=== PATIENT | female | born 1975 | race Two or more races ===

== ENCOUNTER 2017-01-27 21:45 | Inpatient (IN) | payer SELFPAY ==
--- NOTE | 2017-01-27 22:18 | ER Document Report ---
ED General - General Chief Complaint: Breathing Difficulty Stated Complaint: DIFFICULTY BREATHING Mode of Arrival: Medic Information source: Patient Notes: Patient presents to the emergency department via EMS for complaints of difficulty breathing wheezing. Patient reports she is visiting the area from [place]. She reports they drove here one week ago. Patient reports that she had a cough before leaving [place]. She reports cough continued usually in the morning and afternoons without problem. She denies fever vomiting diarrhea. She denies past medical history of asthma or COPD. Patient reports she does smoke occasionally. She reports she went to the urgent care and received a steroid injection and to neb treatments. Then she was prescribed an inhaler and some cough medicine with codeine. While she was standing in line at [facility] to obtain medications she became short of breath and lightheaded and they called EMS. EMS has given her to do her labs. Patient is SOB with exertion and with normal conversation. - HPI Onset: Last week Onset/Duration: Persistent Quality of pain: Achy Associated symptoms: Nonproductive cough Exacerbated by: Denies Relieved by: Denies Similar symptoms previously: Yes Recently seen / treated by doctor: Yes - Related Data Allergies/Adverse Reactions: No Known Allergies Allergy (Unverified 01/27/17 22:11) Home Medications: Current Home Medications No Home Medications 01/28/17 [History] Past Medical History - General Information source: Patient - Social History Smoking Status: Current Some Day Smoker Frequency of alcohol use: None Drug Abuse: None Lives with: Family Family History: Reviewed & Not Pertinent Patient has suicidal ideation: No Patient has homicidal ideation: No - Medical History Medical History: Negative Surgical Hx: Negative Physical Exam - Vital signs Vitals: Temp Pulse Resp BP Pulse Ox 97.5 F 101 H 20 117/65 95 01/27/17 21:56 01/27/17 21:56 01/27/17 21:56 01/27/17 21:56 01/27/17 21:56 - Notes Notes: PHYSICAL EXAMINATION: GENERAL: Nontoxic looking HEAD: Atraumatic, normocephalic. EYES: Pupils equal round and reactive to light, extraocular movements intact, sclera anicteric, conjunctiva are normal. ENT: nares patent, oropharynx clear without exudates. Moist mucous membranes. NECK: Normal range of motion, supple without lymphadenopathy LUNGS: bilateral wheeze a & p tachypneic HEART: Regular rate and rhythm without murmurs ABDOMEN: Soft, no tenderness. No guarding, no rebound BACK: No pain with palpation EXTREMITIES: Normal range of motion, no pitting edema. No cyanosis. NEUROLOGICAL: Cranial nerves grossly intact. Normal sensory/motor exams. PSYCH: Normal mood, normal affect. SKIN: Warm, Dry, normal turgor, no rashes or lesions noted Course - Re-evaluation Re-evalutation: 01/27/17 23:19 Patient has received 3 DuoNeb's to albuterol nebs in a steroid injection. Patient is still wheezing bilaterally A&P. Patient is on 2 L oxygen when removed her o2sats drop to 88-89%. Have considered PE but patient does not meet Wells criteria based on VS, hx. I have consulted the attending provider dr castellano per APC guidelines, magnesium 2 gms ordered IV. 01/28/17 01:18 Pt up to the BR, audible wheezing, Dr Castellano in to evaluate patient agrees with admission. Pt updated on plan. Pt is supposed to drive back to [place] tomorrow. Dr Castellano discussed at length the importance of staying. She verbalized understanding. 01/28/17 01:28 Dr Hilliard contacted, agrees to admission, IMCU. - Vital Signs Vital signs: Temp Pulse Resp BP Pulse Ox 98.3 F 101 H 26 H 122/65 93 01/28/17 04:25 01/27/17 21:56 01/28/17 02:01 01/28/17 03:03 01/28/17 04:00 - Laboratory Result Diagrams: 01/27/17 22:23 01/27/17 22:23 Laboratory results interpreted by me: 01/27/17 01/27/17 22:23 22:23 WBC 16.8 H Seg Neutrophils % 87.1 H Lymphocytes % 8.5 L Monocytes % 2.9 L Absolute Neutrophils 14.6 H Glucose 155 H - Diagnostic Test Radiology reviewed: Image reviewed, Reports reviewed - RAD/ CHEST PA/LAT IMPRESSION: NO SIGNIFICANT RADIOGRAPHIC FINDING IN THE CHEST Discharge - Discharge Clinical Impression: Difficulty breathing, Wheeze Condition: Stable Disposition: ADMITTED INPATIENT Admitting Provider: Barbie hilliard Unit Admitted: CU
[2017-01-27 22:38] LABS: ABSOLUTE EOSINOPHILS # (AUTO) 0.2 10^3/uL (0.0-0.6); ABSOLUTE LYMPHOCYTES (AUTO) 1.4 10^3/uL (0.5-4.7); ABSOLUTE MONOCYTES (AUTO) 0.5 10^3/uL (0.1-1.4); ABSOLUTE NEUT (AUTO) 14.6 10^3/uL (1.7-8.2); BASOPHILS % (AUTO) 0.1 % (0-2); EOSINOPHILS % (AUTO) 1.4 % (0-6); HEMATOCRIT 41.3 % (36.0-47.0); HEMOGLOBIN 13.7 g/dL (12.0-15.5); HGB HCT DIFFERENCE -0.2; LYMPHOCYTES % (AUTO) 8.5 % (13-45); MEAN CORPUSCULAR HEMOGLOBIN 30.4 pg (27.0-33.4); MEAN CORPUSCULAR HGB CONC 33.2 g/dL (32.0-36.0); MEAN CORPUSCULAR VOLUME 92 fl (80-97); MONOCYTES % (AUTO) 2.9 % (3-13); RED BLOOD COUNT 4.52 10^6/uL (3.72-5.28); RED CELL DISTRIBUTION WIDTH 13.1 % (11.5-14.0); SEGMENTED NEUTROPHILS % (AUTO) 87.1 % (42-78); WHITE BLOOD COUNT 16.8 10^3/uL (4.0-10.5)
[2017-01-27 23:03] LABS: ALANINE AMINOTRANSFERASE 25 U/L (9-52); ALBUMIN 4.3 g/dL (3.5-5.0); ALKALINE PHOSPHATASE 89 U/L (38-126); ANION GAP 12 (5-19); ASPARTATE AMINO TRANSFERASE 21 U/L (14-36); BILIRUBIN,DIRECT 0.1 mg/dL (0.0-0.4); BILIRUBIN,TOTAL 0.8 mg/dL (0.2-1.3); BLOOD UREA NITROGEN 14 mg/dL (7-20); CALCIUM 9.5 mg/dL (8.4-10.2); CARBON DIOXIDE 25 mmol/L (22-30); CHLORIDE 104 mmol/L (98-107); CREATININE RESULT 0.63 mg/dL (0.52-1.25); GLUCOSE 155 mg/dL (75-110); POTASSIUM 3.8 mmol/L (3.6-5.0); SODIUM 140.9 mmol/L (137-145); TOTAL PROTEIN 7.3 g/dL (6.3-8.2)
[2017-01-27] MEDS ORDERED: IPRATROPIUM/ALBUTEROL 0.5-2.5 MG/3 ML AMPUL NEB ONE (23:04)
[2017-01-27] MEDS: MAGNESIUM SULFATE/D5W 100 ML IV SCH ×2 (23:33→23:57)
[2017-01-28] MEDS ORDERED: ALBUTEROL SULFATE 0.083% NEB 2.5 MG/3 ML AMPUL NEB ONE (00:41)
[2017-01-28] MEDS ORDERED: METHYLPREDNISOLONE INJ 125 MG/2 ML SDV IV ONE ×2 (01:11→10:00)
[2017-01-28] MEDS ORDERED: NORMAL SALINE 1000 ML 1,000 ML IV ONE (01:12)
[2017-01-28] MEDS ORDERED: ALBUTEROL SULFATE 0.083% NEB 2.5 MG/3 ML AMPUL NEB SCH (01:15)
[2017-01-28 02:09] LABS: TROPONIN I < 0.012 ng/mL
[2017-01-28] MEDS ORDERED: GUAIFENESIN SYRP 200 MG/10 ML UDC PO PRN (03:49)
[2017-01-28] MEDS ORDERED: ACETAMINOPHEN 325 MG TABLET PO PRN (03:49)
[2017-01-28] MEDS ORDERED: ALBUTEROL SULFATE 0.083% NEB 2.5 MG/3 ML AMPUL NEB PRN (03:49)
[2017-01-28] MEDS ORDERED: NORMAL SALINE 1000 ML 1,000 ML IV PRN (03:51)
[2017-01-28 03:56] LABS: ADD ON TESTING BLD IN LAB ACKNOWLEDGE
[2017-01-28] MEDS ORDERED: NICOTINE 7 MG/24 HR PATCH.TD24 TD PRN ×2 (03:59→04:51)
--- NOTE | 2017-01-28 04:07 | PDOC H&P ---
History of Present Illness Admission Date/PCP: 01/28/17 01:39 PCP [facility]. Patient complains of: Cough History of Present Illness: RUBIO NUNEZ is a 41 year old female, originally from [facility], with no known underlying pulmonary disease, who presents to the emergency room for evaluation of a one-week history of above complaint. Patient has been discussed with emergency room nurse practitioner who evaluated the patient. She and family drove down from [place] approximately a week ago. Just prior to leaving, she developed a cough. This has persisted and slightly worsened. Is typically at its worst at night. Over the last day or so, she's been coughing so much that she actually has had to go outside to get fresh air. She's had associated wheezing and some shortness of breath. No prior such episodes. Denies fever or chills. No unusual exposure to chemicals or fumes or other substances. No sick contacts. She's had mild sharp right-sided chest pain, primarily with coughing. Cough is primarily a dry cough. Went to the local urgent care center today and received an intramuscular steroid injection along with DuoNeb treatments. Was given prescription for inhaler and cough medicine with codeine. While standing in line at the local [facility] to obtain her medications, she became short of breath and lightheaded. EMS was called. She continues to wheeze here in the emergency room, although coughing has improved somewhat. Has received further multiple bronchodilator treatments, along with Solu-Medrol.. [facility] and are reviewed. X-ray summary results are listed below, with full report(s) reviewed. . EKG reviewed. No old EKG available for comparison. Social history/personal habits: . Has one daughter. Recently unemployed. 2 or 3 cigarettes a day. No alcohol or illicit drug use. Allergies/adverse reactions NKDA. Home medications none REVIEW OF SYSTEMS: Constitutional: No fever or chills. Eyes: No current vision complaints. ENT: Occasional mild dysphagia, without aspiration. Reportedly has had a negative workup of same back home in [place]. No hearing problems or complaints. Pulmonary: See history and present illness. Cardiovascular: See history and present illness. Gastrointestinal: No current complaints, including nausea or vomiting. Skin: No current complaints, including rashes. Hematologic: Easy bruising. Neurologic: No current complaints, including numbness or tingling. Musculoskeletal: No current complaints, including painful joints. Psychiatric: No current complaints, including anxiety or depression. Endocrine: No current complaints, including polyuria. Genitourinary: No current complaints, including dysuria. PHYSICAL EXAMINATION: Neither Heitner weight are recorded on the chart. In future 97.9. Blood pressure 122/65. Pulse 119 and regular. 96% saturation on 2 L oxygen per nasal cannula. Respirations are 23 and unlabored. Slightly overweight otherwise well-nourished well-developed female appearing approximately her stated age. Pleasant awake alert and cooperative. Appears slightly fatigued, and to feel a bit under the weather, so to speak. Mildly anxious, without agitation. Her daughter and daughter's female newspaper inserter are present at her side; patient approves. Female emergency room nurse [place] is present. Skin is warm and dry. No grossly obvious evidence of rash in areas of skin examined. No subcutaneous nodules palpated. ENT: Hearing grossly normal Mildly hard of hearing to normal conversation. Tongue midline on protrusion pink and slightly tacky. Eyes: No scleral icterus. Pupils equal and reactive to light at 4 mm. [place] conjunctivae. Neck is supple and nontender to gentle active range of motion and palpation. Midline trachea. No palpable thyroid nodule mass enlargement or tenderness. Lymphatic: No palpable cervical or clavicular nodes. Neck and lymphatic exams limited by patient body habitus. Psychiatric: Reasonable insight into acute and chronic medical issues. Oriented to time location and why here. Lungs: Auscultation reveals equal breath sounds bilaterally. No use of accessory respiratory muscles. Diffuse mild expiratory wheezing bilaterally. Cardiovascular: Heart regular rate and rhythm, without gallop murmur or rub. No carotid or abdominal aortic bruits. No ankle or pedal edema. palpable dorsalis pedis pulses. Abdomen: soft, slightly, distended nontender with positive bowel sounds. Unable to adequately evaluate abdomen for masses or organomegaly due to distention. Extremities: Feet are warm and dry. No calf tenderness to compression. No grossly obvious visual evidence of calf swelling. Gentle manipulation of lower extremities fails to reveal any obvious evidence of injury or instability to knees hips or ankles. Neurologic: Moves upper extremities grossly normally. Patellar reflexes absent. Absent Babinski. Light touch is intact at feet. Dorsiflexion and plantarflexion of feet 5 / 5 and symmetric. 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 Denies: Diabetes Mellitus Type 1, Diabetes Mellitus Type 2 Renal/ Medical History: Reports: None GI Medical History: Denies: Cirrhosis, Gastroesophageal Reflux Disease, Hepatitis, Peptic Ulcer Disease Musculoskeltal Medical History: Reports: None Skin Medical History: Reports: None Psychiatric Medical History: Reports: Tobacco Dependency Denies: Alcohol Dependency, Depression, General Anxiety Disorder, Substance Abuse Hematology: Reports: Other - Easy bruising Infectious Medical History: Denies: Hepatitis B, Hepatitis C Past Surgical History Past Surgical History: Reports: Tonsillectomy Social History Information Source: Patient, Emergency Med Personnel, [facility] Records Lives with: Family Smoking Status: Current Some Day Smoker Frequency of Alcohol Use: None Drugs: None - Advance Directive Resuscitation Status: Full Code Surrogate healthcare decision maker:: Daughter Family History Family History: Reviewed & Not Pertinent Parental Family History Reviewed: Yes Children Family History Reviewed: Yes Sibling(s) Family History Reviewed.: Yes Medication/Allergy Home Medications: No Home Medications 01/28/17 Allergies/Adverse Reactions: No Known Allergies Allergy (Unverified 01/27/17 22:11) Physical Exam Vital Signs: Temp Pulse Resp BP Pulse Ox 97.5 F 101 H 26 H 128/74 H 94 01/27/17 21:56 01/27/17 21:56 01/28/17 02:01 01/28/17 02:01 01/28/17 02:01 Results Impressions: Chest X-Ray 01/27/17 22:17 IMPRESSION: NO SIGNIFICANT RADIOGRAPHIC FINDING IN THE CHEST. Assessment & Plan - Diagnosis (1) Bronchitis Is this a current diagnosis for this admission?: Yes (2) Difficulty breathing Is this a current diagnosis for this admission?: YesPlan: Scheduled DuoNeb's. When necessary albuterol nebs. Solu-Medrol. Prevacid for gastritis prophylaxis. Sputum culture. I have strongly encouraged patient to notify staff should she feel that her breathing is worsening. I have strongly encouraged patient not to get out of bed without notifying staff , to avoid a fall with injury. Knee high SCDs for DVT prophylaxis, [along with subcutaneous Lovenox . Impression and plans were discussed with patient, who concurs. Time spent in evaluation and management of patient: 61 minutes. (3) Wheeze Is this a current diagnosis for this admission?: Yes (4) Tobacco dependency Is this a current diagnosis for this admission?: YesPlan: When necessary nicotine patch. - Inpatient Certification Based on my medical assessment, after consideration of the patient's comorbidities, presenting symptoms, or acuity I expect that the services needed warrant INPATIENT care.: Yes I certify that my determination is in accordance with my understanding of Medicare's requirements for reasonable and necessary INPATIENT services [42 CFR 412.3e].: Yes Medical Necessity: Need Close Monitoring Due to Risk of Patient Decompensation, Need For IV Fluids, Need for Nebulizer Therapy and Monitoring of Response, Risk of Complication if Not Cared For in Hospital Post Hospital Care: D/C or Transfer Summary
[2017-01-28 04:08] LABS: MAGNESIUM 1.7 mg/dL (1.6-2.3)
[2017-01-28] MEDS ORDERED: LANSOPRAZOLE 30 MG TAB.RAP.DR PO SCH (06:00)
--- NOTE | 2017-01-28 06:12 | EKG REPORT ---
SEVERITY:- BORDERLINE ECG - SINUS TACHYCARDIA BORDERLINE T ABNORMALITIES, INFERIOR LEADS : Confirmed by: Linda Ugarte 28-Jan-2017 06:11:48
[2017-01-28 07:12] LABS: HEMATOCRIT 38.4 % (36.0-47.0); HEMOGLOBIN 12.8 g/dL (12.0-15.5); MEAN CORPUSCULAR HEMOGLOBIN 30.5 pg (27.0-33.4); MEAN CORPUSCULAR HGB CONC 33.3 g/dL (32.0-36.0); MEAN CORPUSCULAR VOLUME 92 fl (80-97); RED CELL DISTRIBUTION WIDTH 13.4 % (11.5-14.0); WHITE BLOOD COUNT 16.6 10^3/uL (4.0-10.5)
[2017-01-28 07:19] LABS: ANION GAP 16 (5-19); BLOOD UREA NITROGEN 9 mg/dL (7-20); CALCIUM 9.3 mg/dL (8.4-10.2); CARBON DIOXIDE 16 mmol/L (22-30); CHLORIDE 110 mmol/L (98-107); CREATININE RESULT 0.56 mg/dL (0.52-1.25); POTASSIUM 4.3 mmol/L (3.6-5.0); SODIUM 141.9 mmol/L (137-145)
[2017-01-28 07:22] LABS: GLUCOSE 142 mg/dL (75-110)
[2017-01-28 07:33] LABS: BASOPHILS % (MANUAL) 0 % (0-2); EOSINOPHILS % (MANUAL) 0 % (0-6); LYMPHOCYTES % (MANUAL) 5 % (13-45); RBC MORPHOLOGY COMMENT NORMO-CYTIC/CHROMIC; TOTAL CELLS COUNTED 100
[2017-01-28] MEDS ORDERED: ENOXAPARIN SODIUM INJ 40 MG/0.4 ML DISP.SYRIN SUBCUT SCH (08:00)
[2017-01-28] MEDS ORDERED: IPRATROPIUM/ALBUTEROL 0.5-2.5 MG/3 ML AMPUL NEB SCH (08:00)
[2017-01-28] MEDS ORDERED: BUDESONIDE/FORMOTEROL 160-4.5 MCG 60 PUFF/6 GM MDI IH SCH (10:00)
[2017-01-28] MEDS ORDERED: METHYLPREDNISOLONE INJ 125 MG/2 ML SDV IV SCH ×2 (10:00→15:00)
[2017-01-28] MEDS ORDERED: AZITHROMYCIN 250 MG TABLET PO ONE (10:30)
[2017-01-28 11:39] VITALS: BP 117/65
--- NOTE | 2017-01-28 16:38 | PDOC DISCHARGE SUMMARY ---
General - Admit/Disc Date/PCP Admission Date/Primary Care Provider: 01/28/17 03:49 Discharge Date: 01/28/17 - Discharge Diagnosis (1) Bronchitis Is this a current diagnosis for this admission?: YesSummary: Patient will continue with inhaled steroids,antibiotics,prednisone taper and albuterol (2) Wheeze Is this a current diagnosis for this admission?: YesSummary: Completely resolved (3) Tobacco dependency Is this a current diagnosis for this admission?: YesSummary: Counseled the need to quit smoking - Additional Information Resuscitation Status: Full Code Discharge Diet: Regular Discharge Activity: Activity As Tolerated Home Medications: Acetaminophen [Tylenol 325 mg Tablet] 650 mg PO Q4HP PRN tablet 01/28/17 Azithromycin 250 mg PO DAILY #4 tablet 01/28/17 Budesonide/Formoterol Fumarate [Symbicort HFA 160-4.5 mcg Inhaler 6 gm] 2 puff IH Q12 #1 inhaler 01/28/17 Prednisone [Deltasone 20 mg Tablet] 20 mg PO ASDIR PRN #12 tablet 01/28/17 History of Present Illness Patient complains of: Cough, shortness breath and wheezing History of Present Illness: SUSHANT NUNEZ is a 41 year old female, originally from [facility], with no known underlying pulmonary disease, who presents to the emergency room for evaluation of a one-week history of above complaint. Patient has been discussed with emergency room nurse practitioner who evaluated the patient. She and family drove down from [place] approximately a week ago. Just prior to leaving, she developed a cough. This has persisted and slightly worsened. Is typically at its worst at night. Over the last day or so, she's been coughing so much that she actually has had to go outside to get fresh air. She's had associated wheezing and some shortness of breath. No prior such episodes. Denies fever or chills. No unusual exposure to chemicals or fumes or other substances. No sick contacts. She's had mild sharp right-sided chest pain, primarily with coughing. Cough is primarily a dry cough. Went to the local urgent care center today and received an intramuscular steroid injection along with DuoNeb treatments. Was given prescription for inhaler and cough medicine with codeine. While standing in line at the local [facility] to obtain her medications, she became short of breath and lightheaded. EMS was called. She continues to wheeze here in the emergency room, although coughing has improved somewhat. Has received further multiple bronchodilator treatments, along with Solu-Medrol.. Hospital Course Hospital Course: Patient was admitted to [facility] on telemetry. She continued to have nebulizer treatments overnight. This morning her wheezing has ceased. She continues to have nonproductive cough, however denies dyspnea. She is actually asking if she could be discharged to go home she feels much improved. She states her daughter it back to [place] to start college on Monday. Nursing staff ambulated her in the cordero on room air she continued to have oxygen saturations on room air greater than 92%. Physical Exam Vital Signs: Temp Pulse Resp BP Pulse Ox 98.1 F 107 H 18 117/65 91 L 01/28/17 11:38 01/28/17 11:38 01/28/17 11:38 01/28/17 11:38 01/28/17 11:38 Intake & Output 01/27/17 01/28/17 01/29/17 06:59 06:59 06:59 Intake Total 450 240 Balance 450 240 Weight 88.3 kg General appearance: PRESENT: no acute distress, well-developed, well-nourished Head exam: PRESENT: atraumatic, normocephalic Eye exam: PRESENT: conjunctiva pink, EOMI, PERRLA. ABSENT: scleral icterus Ear exam: PRESENT: normal external ear exam Mouth exam: PRESENT: moist, tongue midline Neck exam: ABSENT: carotid bruit, JVD, lymphadenopathy, thyromegaly Respiratory exam: PRESENT: clear to auscultation jori. ABSENT: rales, rhonchi, wheezes Cardiovascular exam: PRESENT: RRR. ABSENT: diastolic murmur, rubs, systolic murmur Pulses: PRESENT: normal dorsalis pedis pul Vascular exam: PRESENT: normal capillary refill GI/Abdominal exam: PRESENT: normal bowel sounds, soft. ABSENT: distended, guarding, mass, organolmegaly, rebound, tenderness Rectal exam: PRESENT: deferred Extremities exam: PRESENT: full ROM. ABSENT: calf tenderness, clubbing, pedal edema Neurological exam: PRESENT: alert, awake, oriented to person, oriented to place , oriented to time, oriented to situation, CN II-XII grossly intact. ABSENT: motor sensory deficit Psychiatric exam: PRESENT: appropriate affect, normal mood. ABSENT: homicidal ideation, suicidal ideation Skin exam: PRESENT: dry, intact, warm. ABSENT: cyanosis, rash Results Laboratory Results: 01/28/17 06:37 01/28/17 06:37 01/28/17 01/28/17 06:37 06:37 WBC 16.6 H RBC 4.20 Hgb 12.8 Hct 38.4 MCV 92 MCH 30.5 MCHC 33.3 RDW 13.4 Plt Count 201 Seg Neutrophils % Not Reportable Lymphocytes % Not Reportable Monocytes % Not Reportable Eosinophils % Not Reportable Basophils % Not Reportable Absolute Neutrophils Not Reportable Absolute Lymphocytes Not Reportable Absolute Monocytes Not Reportable Absolute Eosinophils Not Reportable Absolute Basophils Not Reportable Sodium 141.9 Potassium 4.3 Chloride 110 H Carbon Dioxide 16 L Anion Gap 16 BUN 9 Creatinine 0.56 Est GFR ( Amer) > 60 Est GFR (Non-Af Amer) > 60 Glucose 142 H Calcium 9.3 Impressions: Chest X-Ray 01/27/17 22:17 IMPRESSION: NO SIGNIFICANT RADIOGRAPHIC FINDING IN THE CHEST. Qualifiers PATEINT BEING DISCHARGED WITH ANY OF THE FOLLOWING DIAGNOSIS?: No Plan Discharge Plan: Home with family Time Spent: Less than 30 Minutes
== END 2017-01-28 12:00 | disposition home or self-care (01) | DRG 203 ==
LOC: ER 21:45 → UNDOADMIN 01-28 01:39 → EH 01-28 01:39 → 3W 01-28 04:35 → EH 01-28 04:35
PROVIDERS: ADMIT Family Medicine; ATTEND Family Medicine
DX: J40 Bronchitis, not specified as acute or chronic (principal); E06.3 Autoimmune thyroiditis; F17.210 Nicotine dependence, cigarettes, uncomplicated
CPT/HCPCS: 36415; 71020; 80048; 80053; 82550; 82553; 83735; 84484; 84703; 85025; 87804; 93005; 93010; 99285; J2930; J3475; J3490; J7030; J7620